=== PATIENT | female | born 1970 | race African-American/Black ===

== ENCOUNTER 2019-10-04 21:01 | Emergency (ER) | payer BC, MEDICAID ==
[~2019-10-04] VITALS: Ht 162.6 cm; Wt 109.0 kg
[~2019-10-04 21:01] MED LIST: TRIA1CAP6 PO
[2019-10-05] MEDS ORDERED: NITROGLYCERIN 0.4MG TABLET SL SL PRN (00:30)
[2019-10-05] MEDS ORDERED: ASPIRIN 81MG TABLET PO ONE (00:30)
[2019-10-05 00:40] LABS: BASOPHILS % 0.6 % (0.0-2.0); EOSINOPHILS % 1.1 % (0.0-5.0); HEMATOCRIT. 43.3 % (36.0-48.0); HEMOGLOBIN. 14.7 g/dL (12.0-16.0); LYMPHOCYTES % 34.8 % (20.0-50.0); MEAN CORPUSCULAR VOLUME 88.7 fL (81.0-99.0); MEAN PLATELET VOLUME 6.7 fl (7.4-10.4); MONOCYTES % 6.8 % (2.0-8.0); NEUTROPHILS % 56.7 % (40.0-76.0); PLATELET 313 x1000/uL (130-400); RED BLOOD CELL COUNT 4.89 mill/uL (4.2-5.4); RED CELL DISTRIBUTION WIDTH 13.9 % (11.6-14.6)
[2019-10-05 00:45] LABS: CHLORIDE 103 mEq/L (98-107); INR 0.9; PARTIAL THROMBOPLASTIN TIME 27.8 sec (23.4-31.0); PROTHROMBIN TIME 10.3 sec (9.6-11.0)
[2019-10-05 03:27] VITALS: BP 164/83
== END 2019-10-05 03:29 | disposition home or self-care (01) ==
LOC: ER 21:01
DX: R07.89 Other chest pain (principal); I10 Essential (primary) hypertension; Z98.890 Other specified postprocedural states; Z90.710 Acquired absence of both cervix and uterus
CPT/HCPCS: 36415; 71045; 80053; 83880; 84484; 85025; 85610; 85730; 93005; 99285; Z7610

== ENCOUNTER 2021-03-07 18:53 | Emergency (ER) | payer BC ==
[~2021-03-07] VITALS: Ht 162.6 cm; Wt 111.0 kg
[2021-03-07] MEDS ORDERED: CLONIDINE 0.1MG TABLET PO ONE (20:00)
[2021-03-07 21:01] VITALS: BP 164/94
[2021-03-07] MEDS ORDERED: CLON-457 PO (21:36)
== END 2021-03-07 21:47 | disposition home or self-care (01) ==
LOC: ER 19:49
DX: I10 Essential (primary) hypertension (principal)
CPT/HCPCS: 99283

== ENCOUNTER 2022-04-06 10:55 | Emergency (ER) | payer BC, MEDICAID ==
[~2022-04-06] VITALS: Ht 165.1 cm; Wt 107.0 kg
[~2022-04-06 10:55] MED LIST changes: +CLON-457 PO
[2022-04-06 12:37] LABS: BASOPHILS % 0.7 % (0.0-2.0); EOSINOPHILS % 1.5 % (0.0-5.0); HEMATOCRIT. 42.7 % (36.0-48.0); HEMOGLOBIN. 14.3 g/dL (12.0-16.0); MEAN CORPUSCULAR HEMOGLOBIN 29.2 pg (28.0-32.0); MEAN CORPUSCULAR VOLUME 87.6 fL (81.0-99.0); MEAN PLATELET VOLUME 7.1 fl (7.4-10.4); MONOCYTES % 6.8 % (2.0-8.0); PLATELET 336 x1000/uL (130-400); RED BLOOD CELL COUNT 4.88 mill/uL (4.2-5.4); RED CELL DISTRIBUTION WIDTH 14.6 % (11.6-14.6)
[2022-04-06 12:45] LABS: CHLORIDE 106 mEq/L (98-107)
[2022-04-06 15:00] VITALS: BP 174/92
== END 2022-04-06 16:29 | disposition home or self-care (01) ==
LOC: ER 10:55
DX: R07.89 Other chest pain (principal); I10 Essential (primary) hypertension; Z98.890 Other specified postprocedural states
CPT/HCPCS: 36415; 71045; 80053; 83880; 84484; 85025; 93005; 99285; Z7610

== ENCOUNTER 2022-07-09 08:55 | Emergency (ER) | payer MEDICAID ==
[~2022-07-09] VITALS: Ht 162.6 cm; Wt 111.0 kg
[2022-07-09] MEDS ORDERED: KETOROLAC 60MG/2ML VIAL IM STA (11:08)
[2022-07-09] MEDS ORDERED: ONDANSETRON 4MG ODT PO STA (11:08)
[2022-07-09 11:47] VITALS: BP 206/100
[2022-07-09 12:14] LABS: BASOPHILS % 0.6 % (0.0-2.0); EOSINOPHILS % 0.8 % (0.0-5.0); HEMATOCRIT. 41.4 % (36.0-48.0); LYMPHOCYTES % 30.7 % (20.0-50.0); MEAN CORPUSCULAR HEMOGLOBIN 29.4 pg (28.0-32.0); MEAN CORPUSCULAR VOLUME 87.2 fL (81.0-99.0); MEAN PLATELET VOLUME 6.6 fl (7.4-10.4); MONOCYTES % 6.5 % (2.0-8.0); NEUTROPHILS % 61.4 % (40.0-76.0); PLATELET 380 x1000/uL (130-400); RED BLOOD CELL COUNT 4.75 mill/uL (4.2-5.4); RED CELL DISTRIBUTION WIDTH 14.5 % (11.6-14.6)
[2022-07-09 12:18] LABS: CHLORIDE 103 mEq/L (98-107)
[2022-07-09] MEDS ORDERED: TRAM50TA3 MT (13:15)
[2022-07-09 13:17] LABS: CLARITY URINE CLEAR (CLEAR); COLOR URINE YELLOW (YELLOW); KETONES URINE NEGATIVE (NEGATIVE); LEUKOCYTE ESTERASE URINE NEGATIVE (NEGATIVE); NITRITE URINE NEGATIVE (NEGATIVE); OCCULT BLOOD URINE NEGATIVE (NEGATIVE); PH URINE 7.5 (4.5-8.0); PROTEIN URINE NEGATIVE (NEGATIVE); SPECIFIC GRAVITY URINE 1.009 (1.005-1.030); UROBILINOGEN URINE 0.2 E.U./dL (0.2-1.0)
== END 2022-07-09 13:42 | disposition home or self-care (01) ==
LOC: ER 09:15
DX: N83.202 Unspecified ovarian cyst, left side (principal); I10 Essential (primary) hypertension; Z98.890 Other specified postprocedural states
CPT/HCPCS: 36415; 74176; 80053; 81003; 85025; 96372; 99284; J1885; Q0162

== ENCOUNTER 2025-06-21 16:12 | Emergency (ER) | payer MEDICAID ==
[~2025-06-21] VITALS: Ht 162.6 cm; Wt 125.0 kg
[~2025-06-21 16:12] MED LIST changes: -CLON-457 PO; +CLON-493 PO; +TRAM50TA3 MT
[2025-06-21 16:45] VITALS: TEMP 36.7; O2SAT 98
[2025-06-21 17:17] LABS: BASOPHILS % 1.1 % (0.0-2.0); EOSINOPHILS % 1.5 % (0.0-5.0); HEMATOCRIT. 40.4 % (36.0-48.0); HEMOGLOBIN. 13.3 g/dL (12.0-16.0); LYMPHOCYTES % 29.1 % (20.0-50.0); MEAN PLATELET VOLUME 6.5 fl (7.4-10.4); MONOCYTES % 7.6 % (2.0-8.0); NEUTROPHILS % 60.7 % (40.0-76.0); PLATELET 357 x1000/uL (130-400); RED BLOOD CELL COUNT 4.67 mill/uL (4.2-5.4); RED CELL DISTRIBUTION WIDTH 14.6 % (11.6-14.6)
[2025-06-21 17:39] LABS: CREATININE 1.0 mg/dL (0.6-1.0); UREA NITROGEN BLOOD 11 mg/dL (9-23)
[2025-06-21 17:41] LABS: TROPONIN I HIGH SENSITIVITY 4 ng/L (3.0-34)
[2025-06-21 21:54] VITALS: BP 176/98; PULSE 91; RESP 20; O2SAT 99
== END 2025-06-21 21:55 | disposition home or self-care (01) ==
LOC: ER 16:12
DX: R07.89 Other chest pain (principal); I10 Essential (primary) hypertension; I25.2 Old myocardial infarction; Z79.899 Other long term (current) drug therapy; F10.90 Alcohol use, unspecified, uncomplicated; Y90.9 Presence of alcohol in blood, level not specified
CPT/HCPCS: 36415; 71045; 80048; 84484; 85025; 93005; 99285